=== PATIENT | female | born 1990 | race Caucasian/White ===

== ENCOUNTER 2021-10-27 18:03 | Emergency (ER) | payer SELFPAY ==
[2021-10-27] MEDS ORDERED: Aspirin 81 MG Tab.Chew PO ONE (18:12)
[2021-10-27] MEDS ORDERED: Sodium Chloride 0.9% 1,000 ML IV ONE (18:12)
[2021-10-27] MEDS ORDERED: LORazepam 2 MG/ML SDV IVPUSH ONE (18:12)
[2021-10-27 18:57] LABS: BLOOD UREA NITROGEN,BUN 6 mg/dL (7.0-18.0); CARBON DIOXIDE,CO2 21.4 mmol/L (21.0-32.0); CHLORIDE,CL 98 mmol/L (98-107); ESTIMATED GFR > 60.0 ml/min; GLUCOSE RANDOM 111 mg/dL (74-106); POTASSIUM,K 2.6 mmol/L (3.5-5.1); SODIUM,NA 141 mmol/L (136-145)
[2021-10-27] MEDS ORDERED: Potassium Chloride 10% 20 MEQ/15 ML Soln 30 ML UD Cup PO ONE (19:42)
== END 2021-10-27 22:07 | disposition home or self-care (01) ==
LOC: MERGE 18:03 → MW.ED 18:03
DX: R07.89 Other chest pain (principal); F41.9 Anxiety disorder, unspecified; E87.6 Hypokalemia; R74.01 Elevation of levels of liver transaminase levels; R94.31 Abnormal electrocardiogram [ECG] [EKG]; E66.9 Obesity, unspecified; Z68.30 Body mass index [BMI] 30.0-30.9, adult; Z91.09 Other allergy status, other than to drugs and biological substances
CPT/HCPCS: 36415; 71045; 80053; 80307; 83735; 84132; 84484; 84703; 85025; 93005; 96374; 99285; A9270; J2060; J7030; 93010; 99284

== ENCOUNTER 2022-02-23 02:18 | Emergency (ER) | payer SELFPAY | END 2022-02-23 03:02 | disposition home or self-care (01) | LOC: MW.ED 02:18 | DX: R44.0 Auditory hallucinations (principal); E66.9 Obesity, unspecified; Z68.30 Body mass index [BMI] 30.0-30.9, adult; Z91.09 Other allergy status, other than to drugs and biological substances; Z79.899 Other long term (current) drug therapy | CPT/HCPCS: 99284 ==

== ENCOUNTER 2022-07-28 18:58 | Emergency (ER) | payer SELFPAY | END 2022-07-28 21:00 | disposition left against medical advice (07) | LOC: MW.ED 18:58 | DX: Z53.21 Procedure and treatment not carried out due to patient leaving prior to being seen by health care provider (principal) ==

== ENCOUNTER 2022-07-29 02:40 | Emergency (ER) | payer SELFPAY ==
[2022-07-29] MEDS ORDERED: diphenhydrAMINE 50 MG/ML SDV IVPUSH ONE (02:58)
[2022-07-29] MEDS ORDERED: Haloperidol Lactate 5 MG/ML SDV IM ONE (02:58)
[2022-07-29] MEDS ORDERED: LORazepam 2 MG/ML SDV IM ONE (03:28)
[2022-07-29] MEDS ORDERED: diphenhydrAMINE 50 MG/ML SDV IM STA (04:14)
[2022-07-29 05:22] LABS: BLOOD UREA NITROGEN,BUN 29 mg/dL (7.0-18.0); CHLORIDE,CL 97 mmol/L (98-107); GLUCOSE RANDOM 164 mg/dL (74-106); POTASSIUM,K 2.5 mmol/L (3.5-5.1); SODIUM,NA 135 mmol/L (136-145)
[2022-07-29 05:25] LABS: ESTIMATED GFR 77 mL/min (>60)
[2022-07-29] MEDS ORDERED: Potassium Chloride 10% 20 MEQ/15 ML Soln 30 ML UD Cup PO ONE ×2 (05:30→13:48)
[2022-07-29] MEDS ORDERED: Lactated Ringers 1,000 ML IV STA ×2 (05:30→05:32)
[2022-07-29] MEDS ORDERED: Magnesium Sulfate/Water 2 GM in Premix Bag 1 BAG IV ONE (05:31)
[2022-07-29 12:01] LABS: CARBON DIOXIDE,CO2 23.1 mmol/L (21.0-32.0); POTASSIUM,K 2.7 mmol/L (3.5-5.1)
== END 2022-07-29 15:45 | disposition home or self-care (01) ==
LOC: MW.ED 02:40
DX: E87.6 Hypokalemia (principal); E83.42 Hypomagnesemia; F19.129 Other psychoactive substance abuse with intoxication, unspecified; J45.909 Unspecified asthma, uncomplicated; E66.9 Obesity, unspecified; Z68.24 Body mass index [BMI] 24.0-24.9, adult; Z91.048 Other nonmedicinal substance allergy status
CPT/HCPCS: 36415; 70450; 74018; 80048; 80053; 80307; 82550; 83735; 84443; 84484; 84703; 85025; 93005; 96365; 96366; 96372; 99284; A9270; J1200; J1630; J2060; J3475; J7120

== ENCOUNTER 2022-12-04 08:01 | Emergency (ER) | payer SELFPAY | END 2022-12-04 08:39 | disposition home or self-care (01) | LOC: MW.ED 08:01 | DX: Z02.89 Encounter for other administrative examinations (principal); E66.9 Obesity, unspecified; Z68.28 Body mass index [BMI] 28.0-28.9, adult; Z91.09 Other allergy status, other than to drugs and biological substances | CPT/HCPCS: 99283 ==

== ENCOUNTER 2023-02-14 01:51 | Emergency (ER) | payer OTHER ==
[2023-02-14] MEDS ORDERED: Sodium Chloride 0.9% 2.5 ML Syringe FLUSH PRN (01:59)
[2023-02-14] MEDS ORDERED: Sodium Chloride 0.9% 10 ML Syringe FLUSH PRN (01:59)
[2023-02-14 02:19] LABS: BASOPHILS ABSOLUTE AUTO 0.1 K/uL (0.0-0.1); BASOPHILS PERCENT AUTO 0.7 % (0.0-1.5); EOSINOPHILS ABSOLUTE AUTO 0.2 K/uL (0.0-0.7); EOSINOPHILS PERCENT AUTO 2.7 % (0.0-7.0); HEMATOCRIT 41.5 % (36.0-46.0); HEMOGLOBIN 13.6 g/dL (12.0-16.0); LYMPHOCYTES ABSOLUTE AUTO 4.1 K/uL (0.6-2.4); LYMPHOCYTES PERCENT AUTO 49.5 % (16.0-40.0); MEAN CORPUSCULAR HEMOGLOBIN 32.4 pg (27.0-32.0); MEAN CORPUSCULAR HGB CONC 32.8 g/dL (31.0-37.0); MEAN CORPUSCULAR VOLUME 98.8 fL (80.0-98.0); MONOCYTES ABSOLUTE AUTO 0.4 K/uL (0.0-0.8); MONOCYTES PERCENT AUTO 5.4 % (0.0-15.0); NEUTROPHILS ABSOLUTE AUTO 3.4 K/uL (1.4-5.7); NEUTROPHILS PERCENT AUTO 41.7 % (48.0-80.0); NRBC ABSOLUTE 0 K/uL; PLATELET COUNT,PLT 307 K/uL (150-400)
[2023-02-14 02:44] LABS: ALBUMIN 3.6 g/dL (3.4-5.0); BILIRUBIN TOTAL 0.1 mg/dL (0.2-1.0); CALCIUM 8.2 mg/dL (8.5-10.1); CARBON DIOXIDE,CO2 23.4 mmol/L (21.0-32.0); CREATININE 0.7 mg/dL (0.6-1.0); EST CRCL DRUG DOSING (CG) 92.1 mL/min; POTASSIUM,K 3.5 mmol/L (3.5-5.1); PROTEIN TOTAL,TP 7.1 g/dL (6.4-8.2)
[2023-02-14] MEDS ORDERED: Iopamidol 755 MG/ML 500 ML Multipack Bottle IVPUSH ONE (02:48)
== END 2023-02-14 07:48 ==
LOC: MW.ED 01:51
DX: R07.81 Pleurodynia (principal); M25.512 Pain in left shoulder; E11.9 Type 2 diabetes mellitus without complications; J44.9 Chronic obstructive pulmonary disease, unspecified; Z91.09 Other allergy status, other than to drugs and biological substances; V89.2XXA Person injured in unspecified motor-vehicle accident, traffic, initial encounter; Y92.410 Unspecified street and highway as the place of occurrence of the external cause
CPT/HCPCS: 36415; 70450; 71260; 72125; 73610; 74177; 80053; 80307; 83690; 84703; 85025; 99285; Q9967; 99284

== ENCOUNTER 2023-06-30 11:32 | Day surgery (SDC) | payer OTHER ==
[2023-06-30] MEDS ORDERED: Sodium Chloride 0.9% 2.5 ML Syringe FLUSH PRN (11:48)
[2023-06-30] MEDS ORDERED: Sodium Chloride 0.9% 10 ML Syringe FLUSH PRN (11:48)
[2023-06-30] MEDS ORDERED: Sodium Chloride 0.9% 1,000 ML IV ONE ×2 (11:51→14:37)
[2023-06-30] MEDS ORDERED: Ondansetron 4 MG/2 ML SDV IVPUSH ONE (11:51)
[2023-06-30] MEDS ORDERED: Alum Hydro/Mag Hydro/Simeth XS 15 ML, Lidocaine 2% 5 ML PO ONE ×2 (11:51)
[2023-06-30 12:33] LABS: BASOPHILS ABSOLUTE AUTO 0.03 K/uL (0.00-0.20); BASOPHILS PERCENT AUTO 0.2 % (0.0-1.0); EOSINOPHILS ABSOLUTE AUTO 0.01 K/uL (0.00-0.45); EOSINOPHILS PERCENT AUTO 0.1 % (0.0-6.0); HEMATOCRIT 39.4 % (37.0-47.0); HEMOGLOBIN 13.6 g/dL (12.0-16.0); IMMATURE GRAN ABSOLUTE AUTO 0.04 K/uL (0.00-0.05); IMMATURE GRAN PERCENT AUTO 0.3 % (0.0-0.4); LYMPHOCYTES ABSOLUTE AUTO 1.22 K/uL (1.00-4.80); LYMPHOCYTES PERCENT AUTO 8.5 % (24.0-44.0); MEAN CORPUSCULAR HEMOGLOBIN 31.3 pg (28.0-32.0); MEAN CORPUSCULAR HGB CONC 34.5 g/dL (32.0-36.0); MEAN CORPUSCULAR VOLUME 90.8 fL (83.0-99.0); MEAN PLATELET VOLUME 10.9 fL (9.4-12.3); MONOCYTES ABSOLUTE AUTO 0.56 K/uL (0.00-0.80); MONOCYTES PERCENT AUTO 3.9 % (0.0-8.0); NEUTROPHILS ABSOLUTE AUTO 12.46 K/uL (1.80-7.70); PLATELET COUNT,PLT 229 K/uL (150-400); RED BLOOD CELL COUNT 4.34 M/uL (4.10-5.30); WHITE BLOOD CELL COUNT,WBC 14.32 K/uL (3.9-11.3)
[2023-06-30 12:46] LABS: INR 1.04 (0.86-1.11)
[2023-06-30 12:52] LABS: APPEARANCE,URINE CLEAR; BILIRUBIN,URINE NEGATIVE (NEGATIVE); COLOR,URINE YELLOW; GLUCOSE,URINE NEGATIVE (NEGATIVE); KETONES,URINE >=80 mg/dL (NEGATIVE); LEUKOCYTE ESTERASE,URINE NEGATIVE (NEGATIVE); NITRITE,URINE NEGATIVE (NEGATIVE); OCCULT BLOOD,URINE NEGATIVE (NEGATIVE); PH,URINE 8.5 (5.0-8.0); PROTEIN,URINE 30 mg/dL (NEGATIVE); UROBILINOGEN,URINE 0.2 EU/dL (<2.0)
[2023-06-30] MEDS ORDERED: Morphine 4 MG/ML Syringe IVPUSH ONE (13:15)
[2023-06-30 13:16] LABS: A/G RATIO 1.2 (0.9-1.6); ALBUMIN 4.2 g/dL (3.4-5.0); BILIRUBIN TOTAL 0.7 mg/dL (0.2-1.0); CALCIUM 9.9 mg/dL (8.5-10.1); CARBON DIOXIDE,CO2 24.3 mmol/L (21.0-32.0); CREATININE 0.8 mg/dL (0.6-1.0); EST CRCL DRUG DOSING (CG) 79.85 mL/min; POTASSIUM,K 3.6 mmol/L (3.5-5.1); PROTEIN TOTAL,TP 7.8 g/dL (6.4-8.2)
[2023-06-30 13:18] LABS: BACTERIA,URINE RARE (NEGATIVE); EPITHELIAL CELLS,URINE NOT SEEN (NONE-FEW); RBC,URINE 0-1 (0-2/HPF); WBC,URINE 0-3 (0-5/HPF)
[2023-06-30] MEDS ORDERED: Iopamidol 755 MG/ML 500 ML Multipack Bottle IVPUSH STA (13:46)
[2023-06-30 14:15] LABS: LACTIC ACID 1.4 mmol/L (0.4-2.0)
[2023-06-30] MEDS ORDERED: Piperacillin/Tazobactam 3.375 GM in Sodium Chloride 0.9% 100 ML IV ONE (14:37)
[2023-06-30] MEDS ORDERED: Lactated Ringers 1,000 ML IV SCH ×2 (15:30→18:00)
[2023-06-30] MEDS ORDERED: ceFAZolin 1 GM Vial ONE (15:33)
[2023-06-30] MEDS ORDERED: Bupivacaine 0.5% 30 ML SDV ONE (15:33)
[2023-06-30] MEDS ORDERED: Bupivacaine 0.25% 30 ML SDV ONE (15:46)
[2023-06-30] MEDS ORDERED: EPINEPHrine 1 MG/1 ML Amp ONE (15:46)
[2023-06-30] MEDS ORDERED: Ropivacaine 0.5% 5 MG/ML 30 ML SDV ONE (15:46)
[2023-06-30] MEDS ORDERED: Rocuronium Bromide 50 MG/5 ML Syringe ONE (15:49)
[2023-06-30] MEDS ORDERED: Lidocaine 2% 5 ML SDV ONE (15:49)
[2023-06-30] MEDS ORDERED: Ketorolac 30 MG/ML SDV ONE (15:49)
[2023-06-30] MEDS ORDERED: fentaNYL 100 MCG/2 ML SDV ONE (15:49)
[2023-06-30] MEDS ORDERED: Sugammadex Sodium 200 MG/2 ML VIAL ONE (15:49)
[2023-06-30] MEDS ORDERED: Propofol 200 MG/20 ML SDV ONE (15:49)
[2023-06-30] MEDS ORDERED: Dexamethasone 4 MG/ML 5 ML MDV ONE (15:49)
[2023-06-30] MEDS ORDERED: Ondansetron 4 MG/2 ML SDV ONE (15:49)
[2023-06-30] MEDS ORDERED: HYDROmorphone 1 MG/ML Syringe IVPUSH PRN (17:13)
[2023-06-30] MEDS ORDERED: fentaNYL 50 MCG/ML SDV IVPUSH PRN (17:13)
[2023-06-30] MEDS ORDERED: Ondansetron 4 MG/2 ML SDV IVPUSH PRN (17:13)
[2023-06-30] MEDS ORDERED: Morphine 2 MG/ML SYRINGE IVPUSH PRN (17:13)
[2023-06-30] MEDS ORDERED: droPERidol 5 MG/2 ML SDV IVPUSH PRN (17:13)
[2023-06-30] MEDS ORDERED: Naloxone 0.4 MG/ML SDV IVPUSH PRN (17:13)
[2023-06-30] MEDS ORDERED: Metoclopramide 10 MG/2 ML SDV IVPUSH PRN (17:13)
[2023-06-30] MEDS ORDERED: Albuterol 0.083% 2.5 MG/3 ML Neb Soln NEB PRN (17:13)
[2023-06-30] MEDS ORDERED: HYDROmorphone 2 MG/ML Syringe ONE (17:17)
[2023-06-30] MEDS ORDERED: Acetaminophen/HYDROcodone 325-5 MG Tab PO PRN (17:57)
[2023-06-30] MEDS ORDERED: traMADol 50 MG Tab PO PRN (18:00)
[2023-06-30] MEDS: Piperacillin/Tazobactam 3.375 GM in Sodium Chloride 0.9% 100 ML IV SCH (20:12)
[2023-06-30] MEDS: Morphine 2 MG/ML SYRINGE IVPUSH PRN (20:17)
[2023-07-01] MEDS: Morphine 2 MG/ML SYRINGE IVPUSH PRN (01:27)
[2023-07-01] MEDS: Piperacillin/Tazobactam 3.375 GM in Sodium Chloride 0.9% 100 ML IV SCH ×2 (03:32→09:00)
== END 2023-07-01 10:20 | disposition home or self-care (01) ==
LOC: MW.ED 11:32 → MW.SDS 15:29 → MW.MS 15:37 → MW.SDS 07-01 10:20
PROVIDERS: ATTEND Surgery
DX: K35.33 Acute appendicitis with perforation, localized peritonitis, and gangrene, with abscess (principal); J45.909 Unspecified asthma, uncomplicated; F31.9 Bipolar disorder, unspecified; F41.9 Anxiety disorder, unspecified; Z79.899 Other long term (current) drug therapy
CPT/HCPCS: 36415; 44970; 64488; 74177; 76705; 80053; 81001; 81025; 83605; 83690; 85025; 85610; 96361; 96365; 96375; 99285; A9270; J0131; J0171; J1100; J1170; J1885; J2270; J2405; J2543; J2704; J2795; J3010; J3490; J7030; Q9967; J0690

== ENCOUNTER 2024-04-21 19:54 | Emergency (ER) | payer MEDICAID | END 2024-04-21 21:12 | LOC: MW.ED 19:54 | DX: Z02.89 Encounter for other administrative examinations (principal); Z79.899 Other long term (current) drug therapy; Z91.09 Other allergy status, other than to drugs and biological substances; Z75.8 Other problems related to medical facilities and other health care | CPT/HCPCS: 99282; 99283 ==

== ENCOUNTER 2025-03-01 18:00 | Emergency (ER) | payer SELFPAY | END 2025-03-01 18:59 | LOC: MW.ED 18:00 | DX: S00.81XA Abrasion of other part of head, initial encounter (principal); F10.120 Alcohol abuse with intoxication, uncomplicated; F17.210 Nicotine dependence, cigarettes, uncomplicated; Z91.048 Other nonmedicinal substance allergy status; Y90.9 Presence of alcohol in blood, level not specified; W22.8XXA Striking against or struck by other objects, initial encounter; Y93.89 Activity, other specified | CPT/HCPCS: 99282; 99283 ==

== ENCOUNTER 2025-05-04 05:49 | Emergency (ER) | payer MEDICAID | END 2025-05-04 06:36 | disposition home or self-care (01) | LOC: MW.ED 05:49 | DX: S09.93XA Unspecified injury of face, initial encounter (principal); Z91.09 Other allergy status, other than to drugs and biological substances; F10.90 Alcohol use, unspecified, uncomplicated; W50.0XXA Accidental hit or strike by another person, initial encounter | CPT/HCPCS: 99283; 99284 ==